=== PATIENT | female | born 1960 | race Caucasian/White ===

== ENCOUNTER 2018-09-09 21:07 | Emergency (ER) | payer BC, OTHER ==
[2018-09-09 21:35] VITALS: BP 126/69
[2018-09-09] MEDS ORDERED: Phenazopyridine TAB* 100 MG PO ONE (21:41)
[2018-09-09] MEDS ORDERED: Cephalexin CAP* 500 MG PO ONE (21:41)
--- NOTE | 2018-09-09 21:55 | UC ---
Complaint Female HPI - HPI Summary HPI Summary: Pt c/o sudden onset of urinary urgency, frequency and dysuria ~ 3 days ago. - History Of Current Complaint Chief Complaint: UCGU Stated Complaint: URINARY Time Seen by Provider: 09/09/18 21:25 Hx Obtained From: Patient ?: No Onset/Duration: Sudden Onset, Lasting Days, Still Present Timing: Constant Severity Initially: Mild Severity Currently: Mild Pain Intensity: 6 Character: Dull, Burning Aggravating Factor(s): Urination Alleviating Factor(s): Nothing Associated Signs And Symptoms: Positive: Negative - Risk Factors Ectopic Risk Factor: Negative Ovarian Torsion Risk Factor: Negative - Allergies/Home Medications Allergies/Adverse Reactions: Allergies Allergy/AdvReac Type Severity Reaction Status Date / Time No Known Allergies Allergy Verified 09/09/18 21:27 Home Medications: Home Medications Atomoxetine(NF) [Strattera(NF)] 60 mg PO DAILY 09/09/18 [History Confirmed 09/09] Levothyroxine TAB* [Synthorid 112 MCG TAB*] 112 mcg PO DAILY 09/09/18 [History Confirmed 09/09/18] Olmesartan/Hydrochlorothiazide [Benicar Hct 20-12.5 mg Tablet] 1 tab PO DAILY [History Confirmed 09/09/18] Omeprazole CAP* [Prilosec CAP* 20 MG] 20 mg PO DAILY 09/09/18 [History Confirmed 09/09/18] Venlafaxine EXT RELEASE CAP* [Effexor Xr CAP*] 150 mg PO DAILY 09/09/18 [ History Confirmed 09/09/18] PMH/Surg Hx/FS Hx/Imm Hx Previously Healthy: Yes Endocrine History: Thyroid Disease, Dyslipidemia Cardiovascular History: Hypertension - Surgical History Surgical History: Yes Surgery Procedure, Year, and Place: Deviated Septum, Right Rotator Cuff, C- Sections, Ectopic Pregrnacy, Thyroidectomy - Family History Known Family History: Positive: Cardiac Disease - Social History Occupation: Employed Full-time Lives: With Family Alcohol Use: Occasionally Substance Use Type: None Smoking Status (MU): Former Smoker Length of Time of Smoking/Using Tobacco: 1 PPD x 4 Years Have You Smoked in the Last Year: No When Did the Patient Quit Smoking/Using Tobacco: 1987 Review of Systems Constitutional: Negative Skin: Negative Eyes: Negative ENT: Negative Respiratory: Negative Cardiovascular: Negative Gastrointestinal: Negative Genitourinary: Dysuria, Frequency, Urgency Motor: Negative Neurovascular: Negative Musculoskeletal: Negative Neurological: Negative Psychological: Negative Is Patient Immunocompromised?: No All Other Systems Reviewed And Are Negative: Yes Physical Exam Triage Information Reviewed: Yes Appearance: Well-Appearing Vital Signs: Initial Vital Signs Temp 98.1 F 09/09/18 21:24 Pulse 84 09/09/18 21:24 Resp 18 09/09/18 21:24 BP 126/69 09/09/18 21:24 Pulse Ox 99 09/09/18 21:24 Vital Signs Reviewed: Yes Eye Exam: Normal ENT Exam: Normal ENT: Positive: Hearing grossly normal Dental Exam: Normal Neck exam: Normal Respiratory Exam: Normal Cardiovascular Exam: Normal Abdominal Exam: Normal Abdomen Description: Positive: Nontender, Other: - suprapubic tenderness Musculoskeletal Exam: Normal Neurological Exam: Normal Psychological Exam: Normal Skin Exam: Normal Complaint Female Dx - Differential Dx/Diagnosis Differential Diagnosis/HQI/PQRI: Urinary Tract Infection Provider Diagnoses: UTI Discharge - Sign-Out/Discharge Documenting (check all that apply): Patient Departure All imaging exams completed and their final reports reviewed: No Studies - Discharge Plan Condition: Stable Disposition: HOME Prescriptions: Cephalexin CAP* [Keflex 500 CAP*] 500 mg PO Q8H #21 cap Phenazopyridine TAB* [Pyridium 100 mg TAB*] 100 mg PO Q8H #3 tab Patient Education Materials: Urinary Tract Infection in Women (ED) Referrals: [facility] [Outside] - If Needed - Billing Disposition and Condition Condition: STABLE Disposition: Home
== END 2018-09-09 21:53 | disposition home or self-care (01) ==
LOC: UCCORT 21:07
DX: N39.0 Urinary tract infection, site not specified (principal); E07.9 Disorder of thyroid, unspecified; E78.5 Hyperlipidemia, unspecified; I10 Essential (primary) hypertension; Z87.891 Personal history of nicotine dependence
CPT/HCPCS: 81003; 87086; 99202; A9270-GY; G0463

== ENCOUNTER 2021-02-21 07:32 | Observation (INO) ==
[~2021-02-21 07:32] MED LIST: Buffered Lidocaine 1% SYRIN 1 ml INTRADERM ONE; Lactated Ringers 1000 ml BAG 1,000 ML IV SCH; Lidocaine 1% MPF 5 ML VIAL ONE
[2021-02-21] MEDS ORDERED: ceFAZolin 2 GM PREMIX 2 GM/50 ML BAG ONE (08:02)
[2021-02-21] MEDS ORDERED: Dexamethasone IV 4 MG/ML VIAL 1 ml VIAL ONE ×2 (08:12→08:36)
[2021-02-21] MEDS ORDERED: Ondansetron 4 mg VIAL 2 MG/ML 2 ml VIAL ONE (08:12)
[2021-02-21] MEDS ORDERED: Propofol 10 MG/ML 20 ML BTL ONE ×3 (08:12→10:35)
[2021-02-21] MEDS ORDERED: Lidocaine 2% PF 5 ML VIAL ONE (08:12)
[2021-02-21] MEDS ORDERED: fentaNYL 100 mcg/2 ml 50 MCG/ML VIAL ONE (08:23)
[2021-02-21] MEDS ORDERED: Midazolam 2 mg/2 ml VIAL 1 mg/ml 2 ml VIAL (2 mg) ONE ×3 (08:24→10:11)
[2021-02-21] MEDS ORDERED: Bupivacaine 0.5% SDV PF 30ML VIAL ONE (08:35)
[2021-02-21 09:13] LABS: INR 1.14 (0.82-1.09)
[2021-02-21] MEDS ORDERED: Ropivacaine 5 MG/ML 20 ML VIAL 0.5% (100 MG) ONE (09:23)
[2021-02-21] MEDS ORDERED: EPHEDrine (Pressors) 50 MG/ML VIAL ONE (10:34)
[2021-02-21] MEDS ORDERED: Magnesium Hydroxide LIQ 30 ML UDC PO PRN (12:14)
[2021-02-21] MEDS ORDERED: diPHENhydraMINE IV 50 MG/ML 1 ml VIAL (BENADRYL) IV PRN (12:14)
[2021-02-21] MEDS ORDERED: Ondansetron ODT 4 mg TAB 4 MG TAB PO PRN (12:14)
[2021-02-21] MEDS ORDERED: Lactulose 30 ml UDC PO PRN (12:14)
[2021-02-21] MEDS ORDERED: diPHENhydraMINE 25 mg TAB PO PRN (12:14)
[2021-02-21] MEDS ORDERED: Ondansetron 4 mg VIAL 2 MG/ML 2 ml VIAL IV PRN (12:14)
[2021-02-21] MEDS: Lactated Ringers 1000 ml BAG 1,000 ML IV SCH (14:08)
[2021-02-21] MEDS: oxyCODONE/Acetamin 5/325 mg TAB PO PRN ×2 (15:38→20:29)
[2021-02-21] MEDS: ceFAZolin 1 GM ADVAN 1 GM in NS 0.9% 50 ML 50 ML IVPB SCH (17:23)
[2021-02-21] MEDS: Venlafaxine XR 75 mg PO SCH (21:12)
[2021-02-21] MEDS: Magnesium Hydroxide LIQ 30 ML UDC PO SCH (21:13)
[2021-02-22] MEDS: oxyCODONE/Acetamin 5/325 mg TAB PO PRN ×3 (01:06→10:40)
[2021-02-22] MEDS: Lactated Ringers 1000 ml BAG 1,000 ML IV SCH (01:15)
[2021-02-22] MEDS: ceFAZolin 1 GM ADVAN 1 GM in NS 0.9% 50 ML 50 ML IVPB SCH ×2 (01:16→09:47)
[2021-02-22 07:35] LABS: Hematocrit 33 % (35-47); Hemoglobin 11.3 g/dL (12.0-16.0); Mean Corpuscular HGB Conc 34 g/dL (31-36); Mean Corpuscular Hemoglobin 32 pg (27-31); Mean Corpuscular Volume 95 fL (80-97); Mean Platelet Volume 8.8 fL (7.4-10.4); Platelet Count 175 10^3/uL (150-450); Red Blood Count 3.48 10^6 /uL (3.70-4.87); Red Cell Distribution Width 13 % (10-15); White Blood Count 7.6 10^3/uL (3.5-10.8)
[2021-02-22 07:48] LABS: BUN/Creatinine Ratio 14.9 (8-20); Calcium 8.8 mg/dL (8.6-10.3); EGFR Non-African American 90.1 (>60)
[2021-02-22] MEDS: Magnesium Hydroxide LIQ 30 ML UDC PO SCH (08:39)
[2021-02-22] MEDS: Venlafaxine XR 75 mg PO SCH (08:40)
[2021-02-22] MEDS ORDERED: Vitamin THERAPEUTIC TAB PO SCH (09:00)
[2021-02-22] MEDS ORDERED: Atomoxetine 60 MG CAP (NF) PO SCH (09:00)
[2021-02-22 11:18] VITALS: BP 101/53
== END 2021-02-22 13:50 | disposition home or self-care (01) ==
LOC: INTOOBSV 07:32 → AA 07:32 → SSU 13:27
PROVIDERS: ADMIT Orthopaedic Surgery Adult Reconstructive Orthopaedic Surgery; ATTEND Orthopaedic Surgery Adult Reconstructive Orthopaedic Surgery